=== PATIENT | female | born 1955 | race Caucasian/White ===

== ENCOUNTER 2016-09-29 16:45 | Emergency (ER) | payer OTHER ==
[~2016-09-29] VITALS: Ht 160 cm; Wt 47.6 kg
[2016-09-29] MEDS ORDERED: IBUPROFEN 400 MG TABLET ONE (16:48)
[2016-09-29] MEDS ORDERED: TDAP [DIPH/PERTUSSIS/TET] 0.5 ML VIAL IM ONE ×2 (16:49→17:00)
[2016-09-29] MEDS ORDERED: LIDOCAINE 1%-EPI 1:100,000 50 ML VIAL IJ ONE (17:00)
[2016-09-29] MEDS ORDERED: IBUPROFEN 400 MG TABLET PO ONE (17:00)
[2016-09-29 17:42] VITALS: BP 135/88
== END 2016-09-29 17:43 | disposition home or self-care (01) ==
LOC: ER 16:46
DX: S01.81XA Laceration without foreign body of other part of head, initial encounter (principal); S00.83XA Contusion of other part of head, initial encounter; Z88.2 Allergy status to sulfonamides; Z88.6 Allergy status to analgesic agent; W01.0XXA Fall on same level from slipping, tripping and stumbling without subsequent striking against object, initial encounter; Y93.89 Activity, other specified; Y92.89 Other specified places as the place of occurrence of the external cause; Y99.8 Other external cause status
CPT/HCPCS: 12011; 70486; 90471; 90715; 99284; A4606; A6402; J3490; Z7610